=== PATIENT | female | born 1950 | race Caucasian/White ===

== ENCOUNTER 2024-11-19 12:51 | Outpatient (CLI) | payer MEDICARE | END 2024-11-19 12:52 | disposition home or self-care (01) | LOC: CSHMAMMO 12:51 | PROVIDERS: ATTEND Family Medicine | DX: Z12.31 Encounter for screening mammogram for malignant neoplasm of breast (principal); Z80.3 Family history of malignant neoplasm of breast | CPT/HCPCS: 77063; 77067 ==

== ENCOUNTER 2024-12-08 13:46 | Outpatient (CLI) | payer MEDICARE | END 2024-12-08 13:47 | disposition home or self-care (01) | LOC: CSHMAMMO 13:46 | PROVIDERS: ATTEND Family Medicine | DX: N63.11 Unspecified lump in the right breast, upper outer quadrant (principal) | CPT/HCPCS: 76642; 77065; G0279 ==

== ENCOUNTER → 2024-12-15 | Day surgery (SDC) | payer MEDICARE | LOC: CSHULT 12:28 | PROVIDERS: ATTEND Family Medicine | PROC: 0HBT3ZX Excision of Right Breast, Percutaneous Approach, Diagnostic (ICD-10-PCS; principal; 2024-12-15) | DX: C50.411 Malignant neoplasm of upper-outer quadrant of right female breast (principal); R92.0 Mammographic microcalcification found on diagnostic imaging of breast | CPT/HCPCS: 19083; 88305; 88341; 88342 ==

== ENCOUNTER 2024-12-31 10:53 | Outpatient (CLI) | payer MEDICARE ==
[2024-12-31 12:48] LABS: Hematocrit 37.4 % (34.9-44.5); Hemoglobin 12.7 g/dL (12.0-15.5); Mean Corpuscular Hemoglobin 29.9 pg (27.0-33.0); Platelet Count 297 10x3/uL (150-450); RBC Distribution Width 11.9 % (11.5-14.5); Red Blood Cell (RBC) Count 4.25 10x6/uL (3.90-5.03); White Blood Cell (WBC) Count 8.14 10x3/uL (3.5-10.5)
[2024-12-31 13:28] LABS: Anion Gap 13 mmol/L (10-20); BUN (Urea Nitrogen) 16 mg/dL (9.8-20.1); Calc. Creatinine Clearance 0 mL/min (70-130); Calcium 9.6 mg/dL (7.8-10.44); Carbon Dioxide 24 mmol/L (23-31); Chloride 102 mmol/L (98-107); Estimated GFR 95; Glucose 94 mg/dL (83-110); Potassium 4.2 mmol/L (3.5-5.1); Sodium 135 mmol/L (136-145)
== END 2024-12-31 10:54 | disposition home or self-care (01) ==
LOC: CSHLAB 10:53
PROVIDERS: ATTEND Surgery
DX: Z01.818 Encounter for other preprocedural examination (principal); C50.411 Malignant neoplasm of upper-outer quadrant of right female breast
CPT/HCPCS: 80048; 85027; 93005; 93010

== ENCOUNTER 2025-01-07 07:11 | Day surgery (SDC) | payer MEDICARE ==
[2024-12-31 11:09] VITALS: BMI 23.6
[2025-01-07] MEDS ORDERED: Isosulfan Blue 50 MG/5 ML VIAL ONE (08:01)
[2025-01-07] MEDS ORDERED: Bupivacaine HCl 0.5%/Epinephrine 1:200,000/PF 30 ml Vial ONE (08:01)
[2025-01-07] MEDS ORDERED: CEFAZOLIN 2 GM VIAL ONE (09:04)
[2025-01-07] MEDS ORDERED: PROPOFOL 20 ML ONE (11:53)
[2025-01-07] MEDS ORDERED: fentaNYL 50 mcg/mL 1 mL Vial ONE (11:53)
[2025-01-07] MEDS ORDERED: Dexamethasone 4 mg/ml Vial ONE (12:29)
[2025-01-07] MEDS ORDERED: Ketorolac Tromethamine 30 MG (1 mL) VIAL ONE (12:29)
[2025-01-07] MEDS ORDERED: Ondansetron PF 4 MG/2 ML Vial ONE (12:29)
[2025-01-07] MEDS ORDERED: PHENYLEPHRINE-NS 100 MCG/ML 10 ML SYRINGE ONE (12:41)
== END 2025-01-07 15:00 | disposition home or self-care (01) ==
LOC: CSHSDC 07:11
PROVIDERS: ATTEND Surgery
PROC: 0HBT0ZZ Excision of Right Breast, Open Approach (ICD-10-PCS; principal; 2025-01-07)
PROC: 07B50ZZ Excision of Right Axillary Lymphatic, Open Approach (ICD-10-PCS; 2025-01-07)
DX: C50.411 Malignant neoplasm of upper-outer quadrant of right female breast (principal); I10 Essential (primary) hypertension; Z17.0 Estrogen receptor positive status [ER+]; Z17.21 Progesterone receptor positive status; Z17.32 Human epidermal growth factor receptor 2 negative status; Z96.643 Presence of artificial hip joint, bilateral; Z87.59 Personal history of other complications of pregnancy, childbirth and the puerperium; Z79.899 Other long term (current) drug therapy
CPT/HCPCS: 19301; 38525; 38792; 76098; 78195; A9541; C1713; J1100; J1885; J2405; J2704; J3010; Q9968; 88307